=== PATIENT | female | born 1985 | race Caucasian/White ===

== ENCOUNTER 2016-11-01 22:55 | Inpatient (IN) | payer MEDICAID ==
[~2016-11-01] VITALS: Ht 160 cm; Wt 68.3 kg
[~2016-11-01 22:55] MED LIST: HUMI20KI SQ; VIST25CA PO
--- NOTE | 2016-11-01 23:10 | PD ---
Physical Exam Date Seen by Provider: Nov 01, 2016 Time Seen by Provider: 23:09 [facility] Supervised Visit with NAGA: No Narrative Course 31 YO F with PMH of Crohn's presents to the ED for evaluation of abdominal pain , N/V/D x 5 days. ---F/C. Treated with steroids at urgent care today. On Humira. GI: Dr. Butts. Vitals reviewed. Patient seen in triage. Awaiting bed placement. Sita Almazan Nov 01, 2016 23:10
[2016-11-01 23:13] VITALS: BP 149/77; PULSE 96; RESP 16; TEMP 99; O2SAT 98
[2016-11-01] MEDS ORDERED: ONDANSETRON HCL 4 MG/2 ML VIAL IVP ONE (23:30)
[2016-11-01] MEDS ORDERED: KETOROLAC TROMETHAMINE 30 MG/ML (IVP) VIAL IVP ONE (23:30)
[2016-11-01] MEDS ORDERED: DICYCLOMINE HCL 20 MG/2 ML VIAL IM ONE (23:30)
[2016-11-01] MEDS ORDERED: SODIUM CHLORIDE 0.9% FLUSH 10 ML FLUSH IV FLUSH PRN (23:30)
[2016-11-01] MEDS ORDERED: SODIUM CHLOR 0.9% 1000 ML INJ 1,000 ML IV SCH (23:30)
--- NOTE | 2016-11-01 23:41 | PD ---
HPI Chief Complaint: Abdominal Pain Time Seen by Provider: 23:22 Travel History International Travel<30 days: No Contact w/Intl Traveler<30days: No Traveled to known affect area: No History of Present Illness HPI 31-year-old female with history of Crohn's on Humira every other week here with complaint of abdominal pain, diarrhea. Patient began to feel ill approximately 40 hours ago on Thursday morning. Patient began to have minimal abdominal cramping and fairly frequent profuse watery diarrhea. No hematochezia. Associated nausea, anorexia but no vomiting. Patient states that she was seen at urgent care this morning and was given a dose of steroid injection in the buttock and given prescription for prednisone 40 mg daily 5 days. She took the oral prednisone at home. She is not feeling any improvement. She called Dr. Villagomez's office and spoke with on-call physician who recommended she come to the ER. She denies any fevers, chills. She notes minimal cramping in the abdomen followed by urge to defecate which resolves after defecation. Her biggest concern at this time is throughout the day today her abdomen has become more distended and bloated. PFSH Past Medical History Gastrointestinal Disorders: Yes (CROHN'S) ?: Not : 1 Para: 1 Miscarriage: 0 Social History Alcohol Use: No Tobacco Use: No Substance Use: No Allergies-Medications (Allergen,Severity, Reaction): Coded Allergies: Penicillin (Verified Allergy, Severe, Hives, 11/01/16) Reported Meds & Prescriptions Reported Meds & Active Scripts Active Vistaril (Hydroxyzine Pamoate) 25 Mg Cap 25 Mg PO Q6H PRN Reported Humira Inj. (Adalimumab 20 mg/0.4 ml) Adalimumab 20 mg/0.4 ml Inj 40 Mg SQ Q14D Review of Systems Except as stated in HPI: all other systems reviewed are Neg Physical Exam Narrative GENERAL: Well-appearing female in no acute distress SKIN: Focused skin assessment warm/dry. HEAD: Normocephalic. EYES: No scleral icterus. No injection or drainage. ENT: Mucous membranes pink and moist. NECK: Supple CARDIOVASCULAR: Regular rate and rhythm. No murmur appreciated. RESPIRATORY: No accessory muscle use. Clear to auscultation. Breath sounds equal bilaterally. GASTROINTESTINAL: Abdomen soft, nontender to palpation but distended. No fluid wave. No CVA tenderness MUSCULOSKELETAL: No obvious deformities. No edema. NEUROLOGICAL: Awake and alert. Motor grossly within normal limits. Normal speech. PSYCHIATRIC: Appropriate mood and affect; insight and judgment normal. Data Data Last Documented VS Vital Signs Date Time Temp Pulse Resp B/P Pulse Ox O2 Delivery O2 Flow Rate FiO2 11/01/16 23:13 99.0 96 16 149/77 98 Room Air Orders Complete Blood Count With Diff (11/01/16 23:23) Comprehensive Metabolic Panel (11/01/16 23:23) Lipase (11/01/16 23:23) Urinalysis - C+S If Indicated (11/01/16 23:23) Iv Access Insert/Monitor (11/01/16 23:23) Ecg Monitoring (11/01/16 23:23) Oximetry (11/01/16 23:23) Sodium Chloride 0.9% Flush (Ns Flush) (11/01/16 23:30) Ed Urine Pregnancytest Poc (11/01/16 23:23) Ondansetron Inj (Zofran Inj) (11/01/16 23:30) Sodium Chlor 0.9% 1000 Ml Inj (Ns 1000 M (11/01/16 23:30) Ketorolac Inj (Toradol Inj) (11/01/16 23:30) Dicyclomine Inj (Bentyl Inj) (11/01/16 23:30) Labs Laboratory Tests Test 11/01/16 11/01/16 23:45 23:55 White Blood Count 4.3 TH/MM3 Red Blood Count 4.40 MIL/MM3 Hemoglobin 13.8 GM/DL Hematocrit 40.3 % Mean Corpuscular Volume 91.5 FL Mean Corpuscular Hemoglobin 31.4 PG Mean Corpuscular Hemoglobin 34.3 % Concent Red Cell Distribution Width 12.7 % Platelet Count 305 TH/MM3 Mean Platelet Volume 7.9 FL Neutrophils (%) (Auto) 70.9 % Lymphocytes (%) (Auto) 26.6 % Monocytes (%) (Auto) 2.4 % Eosinophils (%) (Auto) 0.0 % Basophils (%) (Auto) 0.1 % Neutrophils # (Auto) 3.1 TH/MM3 Lymphocytes # (Auto) 1.1 TH/MM3 Monocytes # (Auto) 0.1 TH/MM3 Eosinophils # (Auto) 0.0 TH/MM3 Basophils # (Auto) 0.0 TH/MM3 CBC Comment DIFF FINAL Differential Comment Sodium Level 139 MEQ/L Potassium Level 3.6 MEQ/L Chloride Level 107 MEQ/L Carbon Dioxide Level 22.2 MEQ/L Anion Gap 10 MEQ/L Blood Urea Nitrogen 8 MG/DL Creatinine 0.68 MG/DL Estimat Glomerular Filtration 102 ML/MIN Rate Random Glucose 140 MG/DL Calcium Level 8.8 MG/DL Total Bilirubin 0.3 MG/DL Aspartate Amino Transf 23 U/L (AST/SGOT) Alanine Aminotransferase 22 U/L (ALT/SGPT) Alkaline Phosphatase 52 U/L Total Protein 8.2 GM/DL Albumin 3.5 GM/DL Lipase 154 U/L Urine Color YELLOW Urine Turbidity HAZY Urine pH 6.0 Urine Specific [place] 1.034 Urine Protein 100 mg/dL Urine Glucose (UA) NEG mg/dL Urine Ketones TRACE mg/dL Urine Occult Blood MOD Urine Nitrite NEG Urine Bilirubin NEG Urine Urobilinogen LESS THAN 2.0 MG/DL Urine Leukocyte Esterase NEG Urine RBC 18 /hpf Urine WBC 7 /hpf Urine Squamous Epithelial 5 /hpf Cells Urine Bacteria RARE /hpf Urine Mucus MANY /lpf Microscopic Urinalysis Comment CULT NOT INDICATED MDM Medical Decision Making Medical Screen Exam Complete: Yes Emergency Medical Condition: Yes Medical Record Reviewed: Yes Differential Diagnosis 31-year-old female with history of Crohn's disease here with complaint of 40 hours of profuse diarrhea, anorexia and nausea. Differential includes Crohn's flare, dehydration, electrolyte abnormality, irritable bowel. Her abdominal examination is benign and given lack of fevers or chills by suspicion for complications of Crohn such as fistula, abscess is low. Narrative Course Patient placed on monitor, IV established and blood obtained. Given 1 L normal saline bolus, 4 mg Zofran, 30 mg Toradol, 20 mg Bentyl. CBC, CMP, lipase, urinalysis and urine test notable only for questionable urinary tract infection. This is a dirty specimen but does contain some red cells and white cells with bacteria. Patient had no improvement with the above and was given second liter normal saline bolus, 4 mg morphine. Patient still nauseous, and having pain with any oral intake. Will admit for symptom control. Diagnosis Primary Impression: Crohn's colitis Qualified Code: K50.10 - Crohn's colitis, without complications Admitting Information Admitting Physician Requests: Lindsay Quispe MD Nov 01, 2016 23:41
[2016-11-02 00:01] LABS: AUTOMATED NEUTROPHIL # 3.1 TH/MM3 (1.8-7.7); BASOPHIL % 0.1 % (0.0-2.0); HEMATOCRIT 40.3 % (35.0-46.0); HEMO FLAGS DIFF FINAL; LYMPH % 26.6 % (9.0-44.0); LYMPHOCYTE # 1.1 TH/MM3 (1.0-4.8); MEAN CELL VOLUME 91.5 FL (80.0-100.0); MEAN CORPUSCULAR HEMOGLOBIN 31.4 PG (27.0-34.0); MEAN CORPUSCULAR HGB CONC 34.3 % (32.0-36.0); MONO % 2.4 % (0.0-8.0); NEUT % 70.9 % (16.0-70.0); PLATELET COUNT 305 TH/MM3 (150-450); RED CELL DISTRIBUTION WIDTH 12.7 % (11.6-17.2); WHITE BLOOD COUNT 4.3 TH/MM3 (4.0-11.0)
[2016-11-02 00:25] LABS: ANION GAP 10 MEQ/L (5-15); AST (GOT) 23 U/L (15-37); BICARBONATE 22.2 MEQ/L (21.0-32.0); BLOOD UREA NITROGEN 8 MG/DL (7-18); CHLORIDE 107 MEQ/L (98-107); GLOMERULAR FILTRATION RATE 102 ML/MIN (>89); SODIUM (NA) 139 MEQ/L (136-145)
[2016-11-02 00:26] LABS: ALKALINE PHOSPHATASE 52 U/L (45-117); ALT (GPT) 22 U/L (10-53); TOTAL BILIRUBIN ADULT 0.3 MG/DL (0.2-1.0)
[2016-11-02 00:41] LABS: POTASSIUM 3.6 MEQ/L (3.5-5.1)
[2016-11-02 00:49] LABS: BACTERIA, URINE RARE /hpf; BLOOD, URINE MOD (NEG); GLUCOSE,URINE NEG (NEG); KETONE, URINE TRACE mg/dL (NEG); MUCUS URINE MANY /lpf (OCC); NITRITE,URINE NEG (NEG); SQUAMOUS EPITHELIAL CELL URINE 5 /hpf (0-5); URINE COLOR YELLOW (YELLW/STRAW)
[2016-11-02 00:50] LABS: COMMENT (UR) CULT NOT INDICATED; CULTURE IF INDICATED CULT NOT INDICATED
[2016-11-02] MEDS ORDERED: SODIUM CHLOR 0.9% 1000 ML INJ 1,000 ML IV SCH (01:35)
[2016-11-02] MEDS ORDERED: MORPHINE SULFATE 4 MG/ML INJ IV PUSH ONE (01:45)
[2016-11-02] MEDS ORDERED: ONDANSETRON HCL 4 MG/2 ML VIAL IVP PRN (02:00)
[2016-11-02] MEDS ORDERED: BISACODYL 10 MG SUPP RECTAL PRN (02:00)
[2016-11-02] MEDS ORDERED: LACTULOSE SYRUP 20 GM/30 ML CUP PO PRN (02:00)
[2016-11-02] MEDS ORDERED: ATROPINE/SCOPOLAM/HYOSCYAM/PB ELIXIR 10 ML CUP PO PRN (02:00)
[2016-11-02] MEDS ORDERED: PANTOPRAZOLE SODIUM 40 MG VIAL IV PUSH ONE (02:00)
[2016-11-02] MEDS ORDERED: LIDOCAINE VISCOUS 2% SOLN 15 ML UDC SWISH-SWAL PRN (02:00)
[2016-11-02] MEDS ORDERED: MORPHINE SULFATE 4 MG/ML INJ IV PRN (02:00)
[2016-11-02] MEDS ORDERED: MAGNESIUM HYDROXIDE SUSP 30 ML CUP PO PRN (02:00)
[2016-11-02] MEDS ORDERED: ALUMINUM/MAGNESIUM/SIMETH 30 ML CUP PO PRN (02:00)
[2016-11-02] MEDS ORDERED: ACETAMINOPHEN/HYDROcodone 325 MG/5 MG TAB PO PRN (02:00)
[2016-11-02] MEDS ORDERED: ACETAMINOPHEN 325 MG TAB PO PRN (02:00)
[2016-11-02] MEDS ORDERED: SENNOSIDES 8.6 MG TAB PO PRN (02:00)
[2016-11-02] MEDS ORDERED: SODIUM CHLORIDE 0.9% FLUSH 10 ML FLUSH IV FLUSH PRN (02:00)
--- NOTE | 2016-11-02 03:42 | HHI.HP ---
[facility] No Primary Care Physician Admission Diagnosis Crohn's colitis Diagnoses: (1) Crohn's disease Diagnosis: Principal (2) Intractable nausea and vomiting Diagnosis: Principal (3) Abdominal distention Diagnosis: Principal Travel History International Travel<30 Days: No Contact w/Intl Traveler <30 Da: No Traveled to Known Affected Are: No History of Present Illness This is a 31-year-old female with a PMH of Crohn's Disease on Humira who presented to the ER w/ complaints of nausea, diarrhea and progressive abdominal distention x2 days. Seen at Urgent Care Clinic earlier and given Steroid IM and Rx for Prednisone 40mg qd x5 days, however no improvement. Follows w/ GI, Dr. Butts, called office today and was instructed to come to the ER. Denies fever, chills, abdominal pain or sick contacts. On arrival, BP 149/77, HR 96, O2 sat 98% on RA, Temp 99.0. CBC unremarkable. CMP essentially unremarkable. UA negative for UTI. S/p Bentyl, Toradol, Morphine and Zofran in ER w/ minimal improvement. Review of Systems Except as stated in HPI: all other systems reviewed are Neg ROS: 14 point review of systems otherwise negative. Past Family Social History Past Medical History PMH: Crohn's Disease on Humira Past Surgical History PAST SURGICAL HISTORY: None Allergies: Coded Allergies: Penicillin (Verified Allergy, Severe, Hives, 11/01/16) Family History PAST FAMILY HISTORY: Reviewed. No h/o DM or CAD Social History PAST SOCIAL HISTORY: Negative for alcohol, tobacco or drugs. Physical Exam Vital Signs Vital Signs Date Time Temp Pulse Resp B/P Pulse Ox O2 Delivery O2 Flow Rate FiO2 11/01/16 23:13 99.0 96 16 149/77 98 Room Air Physical Exam PE: GENERAL: Pleasant young female in no acute distress. HEENT: PERRLA, EOMI. No scleral icterus or conjunctival pallor. No lid lag or facial droop. CARDIOVASCULAR: Regular rate and rhythm. No obvious murmurs to auscultation. No chest tenderness to palpation. RESPIRATORY: No obvious rhonchi or wheezing. Clear to auscultation. Breath sounds equal bilaterally. GASTROINTESTINAL: Abdomen distended but soft, no tenderness to palpation, significant gas. MUSCULOSKELETAL: Extremities without clubbing, cyanosis, or edema. No obvious deformities. NEUROLOGICAL: Awake, alert and oriented x4. No focal neurologic deficits. Moving both upper and lower extremities spontaneously. Laboratory Laboratory Tests Test 11/01/16 11/01/16 23:45 23:55 White Blood Count 4.3 Red Blood Count 4.40 Hemoglobin 13.8 Hematocrit 40.3 Mean Corpuscular Volume 91.5 Mean Corpuscular Hemoglobin 31.4 Mean Corpuscular Hemoglobin 34.3 Concent Red Cell Distribution Width 12.7 Platelet Count 305 Mean Platelet Volume 7.9 Neutrophils (%) (Auto) 70.9 Lymphocytes (%) (Auto) 26.6 Monocytes (%) (Auto) 2.4 Eosinophils (%) (Auto) 0.0 Basophils (%) (Auto) 0.1 Neutrophils # (Auto) 3.1 Lymphocytes # (Auto) 1.1 Monocytes # (Auto) 0.1 Eosinophils # (Auto) 0.0 Basophils # (Auto) 0.0 CBC Comment DIFF FINAL Differential Comment Sodium Level 139 Potassium Level 3.6 Chloride Level 107 Carbon Dioxide Level 22.2 Anion Gap 10 Blood Urea Nitrogen 8 Creatinine 0.68 Estimat Glomerular Filtration 102 Rate Random Glucose 140 Calcium Level 8.8 Total Bilirubin 0.3 Aspartate Amino Transf 23 (AST/SGOT) Alanine Aminotransferase 22 (ALT/SGPT) Alkaline Phosphatase 52 Total Protein 8.2 Albumin 3.5 Lipase 154 Urine Color YELLOW Urine Turbidity HAZY Urine pH 6.0 Urine Specific [place] 1.034 Urine Protein 100 Urine Glucose (UA) NEG Urine Ketones TRACE Urine Occult Blood MOD Urine Nitrite NEG Urine Bilirubin NEG Urine Urobilinogen LESS THAN 2.0 Urine Leukocyte Esterase NEG Urine RBC 18 Urine WBC 7 Urine Squamous Epithelial 5 Cells Urine Bacteria RARE Urine Mucus MANY Microscopic Urinalysis Comment CULT NOT INDICATED Result Diagram: 11/01/16234411/01/162344 Assessment and Plan Problem List: (1) Crohn's disease ICD Code: K50.90 Status: Acute (2) Intractable nausea and vomiting ICD Code: R11.2 Status: Acute (3) Abdominal distention ICD Code: R14.0 Status: Acute Assessment and Plan A/P: 1. Crohn's Disease: Chronic. On Humira, following w/ Dr. Butts as outpatient, recently started on Prednisone PO, will start Solu-Medrol IV, abdomen soft, no c/o abdominal pain at this time. 2. Intractable N/V: Persistent. Unable to take adequate PO due to symptoms. Supportive therapy, IVF, diet as tolerated, analgesics/antiemetics as needed. 3. Abdominal Distention: abdomen soft, non-tender, +significant gas on exam, Protonix IV, GI Cocktail, supportive treatment. 4. DVT Prophylaxis: SCD/Teds. 5. Social work for d/c planning as needed. 6. Case discussed w/ ER physician at length. Gudelia Morgan MD Nov 02, 2016 03:42
[2016-11-02] MEDS ORDERED: NUVAMIS VAGINAL (03:45)
[2016-11-02] MEDS ORDERED: HUMI40KI SQ (03:45)
[2016-11-02] MEDS ORDERED: PRED20 PO (03:47)
[2016-11-02] MEDS: SODIUM CHLOR 0.9% 1000 ML INJ 1,000 ML IV SCH ×3 (03:48→21:32)
[2016-11-02 07:48] VITALS: BP 118/69; PULSE 64; RESP 16; TEMP 98.3; O2SAT 96
[2016-11-02] MEDS: methylPREDNISolone SOD SUCC 40 MG/1 ML VIAL IV PUSH SCH ×2 (08:58→21:32)
[2016-11-02] MEDS: SODIUM CHLORIDE 0.9% FLUSH 10 ML FLUSH IV FLUSH SCH ×2 (08:59→21:00)
[2016-11-02] MEDS ORDERED: DOCUSATE SODIUM 50 MG/SENNA 8.6 MG TAB PO SCH (09:00)
--- NOTE | 2016-11-02 11:27 | HHI.PR ---
Subjective Remarks Follow-up for Crohn's exacerbation. The patient states that she tried clear liquids this morning, which causes worsening abdominal distention and bloating. She does report that pain medicines in the ED have relieved the sharp stabbing pain she was having in her abdomen. She continues to report diarrhea this morning. She states that normally Crohn's exacerbations or able to be treated with oral prednisone, but oral prednisone she received at urgent care did not help. She states that on recent admission she saw Dr. Persaud, but has not been following with him as outpatient. She states that previously she had been following with Dr. Hoffmann. Objective Vitals Vital Signs Date Time Temp Pulse Resp B/P Pulse Ox O2 Delivery O2 Flow Rate FiO2 11/02/16 07:48 98.3 64 16 118/69 96 11/01/16 23:13 99.0 96 16 149/77 98 Room Air I/O 11/01/16 11/01/16 11/01/16 11/02/16 11/02/16 11/02/16 07:00 15:00 23:00 07:00 15:00 23:00 Intake Total 120 ml Balance 120 ml Intake Oral 120 ml Result Diagram: 11/01/16 2345 11/01/16 2345 Objective Remarks GENERAL: Well-developed well-nourished. In no acute distress. SKIN: Warm and dry. No lesions noted. HEENT: Normocephalic. Pupils equal and round. Mucous membranes pink and moist. CARDIOVASCULAR: Regular rate and rhythm. No murmur appreciated. RESPIRATORY: No accessory muscle use. Clear to auscultation. Breath sounds equal bilaterally. GASTROINTESTINAL: Abdomen soft, non-tender, moderately distended. Bowel sounds x4. MUSCULOSKELETAL: No obvious deformities. No clubbing or cyanosis. No edema. NEUROLOGICAL: Awake and alert. No focal neurological deficits. Moves upper and lower extremities spontaneously. Normal speech. PSYCHIATRIC: Appropriate mood and affect; insight and judgment normal. A/P Problem List: (1) Crohn's disease ICD Code: K50.90 Status: Acute (2) Intractable nausea and vomiting ICD Code: R11.2 Status: Acute (3) Abdominal distention ICD Code: R14.0 Status: Acute Assessment and Plan 31-year-old female with a PMH of Crohn's Disease on Humira who presented w/ complaints of nausea, diarrhea and progressive abdominal distention x2 days Acute exacerbation of Crohn's Disease: Failed outpatient therapy with oral prednisone. Consult gastroenterology, previously following with Dr. Hoffmann. Continue Solu-Medrol IV. Clear liquids for now as tolerated. Supportive care with IVF, IV morphine as needed, antiemetics as needed. DVT Prophylaxis: SCD/Teds. Discharge Planning Discussed with case management, meets inpatient criteria. Vic Tena Nov 02, 2016 11:27
[2016-11-02 12:01] VITALS: BP 124/74; PULSE 68; RESP 16; TEMP 98.1; O2SAT 96
[2016-11-02 15:00] VITALS: BP 119/72; PULSE 70; RESP 16; TEMP 98.5; O2SAT 97
--- NOTE | 2016-11-02 16:58 | PD.CONS ---
HPI History of Present Illness This is a 31 year old female who presents with complaints of abdominal distention this was associated with diarrhea that started on Thursday she reports nausea but no vomiting this time around usually she complains of bouts of constipation with nausea and vomiting and most often she is able to deal with it at home the patient was diagnosed with Crohn's disease back in 2013 she presented with abdominal distention and workup at that time revealed a phlegmon and she underwent surgical intervention and the biopsies seem to confirm inflammation with the possibility of Crohn's the patient tells me she got started on some cemzia thereafter but she failed therapy and then got on Humira and she feels like she's done pretty well on this medicine she has been on it for the past year and a half and has had 3 or 4 small flares and is she would put it At this point in time she is comfortable in bed she does have a significantly distended abdomen apart from some nausea she is feeling otherwise comfortable PFSH Past Medical History PMH: Crohn's Disease on Humira Past Surgical History Seems like she may have had a partial resection or just biopsies from the colon and ileum not clear to me at this point Coded Allergies: Penicillin (Verified Allergy, Severe, Hives, 11/01/16) Medications Humira Family History She has one or 2 members of her family with Crohn's disease Social History PAST SOCIAL HISTORY: Negative for alcohol, tobacco or drugs. Review of Systems ROS Review of systems Patient denies any headache dizziness blurry vision, denies any chest pain shortness of breath cough fever chills, Denies any palpitations or fatigue denies any polyuria dysuria hematuria, denies any numbness tingling or weakness, denies any skin rash pruritus or jaundice, denies any easy bruising or bleeding tendency, denies any recent change in mood GI Exam Vitals I&O Vital Signs Date Time Temp Pulse Resp B/P Pulse Ox O2 Delivery O2 Flow Rate FiO2 11/02/16 15:00 98.5 70 16 119/72 97 11/02/16 14:20 18 11/02/16 12:01 98.1 68 16 124/74 96 11/02/16 07:48 98.3 64 16 118/69 96 11/01/16 23:13 99.0 96 16 149/77 98 Room Air I/O 6/17/17 6/17/17 11/01/16 11/02/16 11/02/16 11/02/16 07:00 15:00 23:00 07:00 15:00 23:00 Intake Total 120 ml Balance 120 ml Intake Oral 120 ml Laboratory Test 11/01/16 11/01/16 23:45 23:55 White Blood Count 4.3 TH/MM3 Red Blood Count 4.40 MIL/MM3 Hemoglobin 13.8 GM/DL Hematocrit 40.3 % Mean Corpuscular Volume 91.5 FL Mean Corpuscular Hemoglobin 31.4 PG Mean Corpuscular Hemoglobin 34.3 % Concent Red Cell Distribution Width 12.7 % Platelet Count 305 TH/MM3 Mean Platelet Volume 7.9 FL Neutrophils (%) (Auto) 70.9 % Lymphocytes (%) (Auto) 26.6 % Monocytes (%) (Auto) 2.4 % Eosinophils (%) (Auto) 0.0 % Basophils (%) (Auto) 0.1 % Neutrophils # (Auto) 3.1 TH/MM3 Lymphocytes # (Auto) 1.1 TH/MM3 Monocytes # (Auto) 0.1 TH/MM3 Eosinophils # (Auto) 0.0 TH/MM3 Basophils # (Auto) 0.0 TH/MM3 CBC Comment DIFF FINAL Differential Comment Sodium Level 139 MEQ/L Potassium Level 3.6 MEQ/L Chloride Level 107 MEQ/L Carbon Dioxide Level 22.2 MEQ/L Anion Gap 10 MEQ/L Blood Urea Nitrogen 8 MG/DL Creatinine 0.68 MG/DL Estimat Glomerular Filtration 102 ML/MIN Rate Random Glucose 140 MG/DL Calcium Level 8.8 MG/DL Total Bilirubin 0.3 MG/DL Aspartate Amino Transf 23 U/L (AST/SGOT) Alanine Aminotransferase 22 U/L (ALT/SGPT) Alkaline Phosphatase 52 U/L Total Protein 8.2 GM/DL Albumin 3.5 GM/DL Lipase 154 U/L Urine Color YELLOW Urine Turbidity HAZY Urine pH 6.0 Urine Specific [place] 1.034 Urine Protein 100 mg/dL Urine Glucose (UA) NEG mg/dL Urine Ketones TRACE mg/dL Urine Occult Blood MOD Urine Nitrite NEG Urine Bilirubin NEG Urine Urobilinogen LESS THAN 2.0 MG/DL Urine Leukocyte Esterase NEG Urine RBC 18 /hpf Urine WBC 7 /hpf Urine Squamous Epithelial 5 /hpf Cells Urine Bacteria RARE /hpf Urine Mucus MANY /lpf Microscopic Urinalysis Comment CULT NOT INDICATED Physical Examination HEENT: Pupils round and reactive to light; normocephalic; atraumatic; no jaundice. Throat is clear. NECK: Neck is supple, no JVD, no lymphadenopathy. CHEST: Chest is clear to auscultation and percussion. CARDIAC: Regular rate and rhythm with no murmur gallop or rubs. ABDOMEN: Soft, distended mildly tympanic but not tense, nontender; no hepatosplenomegaly; bowel sounds are present in all four quadrants. EXTREMITIES: No clubbing, cyanosis, or edema. SKIN: Normal; no rash; no jaundice. FIRE INFORMATION OFFICER: No focal deficits; alert and oriented times three. Assessment and Plan Plan Abdominal distention etiology unclear History of Crohn's At this point we will need abdominal imaging and I think the best approach would be to have a CT of the abdomen with contrast She may even need on top of that if nondiagnostic a small bowel follow-through Would also contemplate pursuing a colonoscopy if all the above is unremarkable I also ordered a sedimentation rate and CRP It is not clear to me at this point that the patient has Crohn's but I would certainly continue with current supportive care and measures Further recommendations shall depend on her hospital course Shola Ramirez MD Nov 02, 2016 16:58
[2016-11-02] MEDS ORDERED: DIATRIZOATE MEGLUM/DIATRIZOATE SOD 9 ML CUP PO ONE (18:00)
[2016-11-02] MEDS ORDERED: IOHEXOL 350 MG/ML 10 ML VIAL (for RAD DIAG) IV ONE (19:15)
--- NOTE | 2016-11-02 19:29 | RADRPT ---
EXAM DATE/TIME: 11/02/2016 19:09 [facility] COMPARISON: CT ABDOMEN & PELVIS W CONTRAST, July 09, 2013, 10:02. INDICATIONS : Abdominal distention with periumbilical pain X 3 days. IV CONTRAST: 71 cc Omnipaque 350 (iohexol) IV ORAL CONTRAST: Prescribed oral contrast ingested. RADIATION DOSE: 9.96 CTDIvol (mGy) MEDICAL HISTORY : Crohn's disease. SURGICAL HISTORY : None. ENCOUNTER: Initial ACUITY: 3 days PAIN SCALE: 7/10 LOCATION: abdomen TECHNIQUE: Volumetric scanning of the abdomen and pelvis was performed. Using automated exposure control and ad justment of the mA and/or kV according to patient size, radiation dose was kept as low as reasonably achievable to obtain optimal diagnostic quality images. FINDINGS: LOWER LUNGS: The visualized lower lungs are clear. LIVER: Homogeneous density without lesion. There is no dilation of the biliary tree. Gallbladder is distend ed but otherwise unremarkable by CT. SPLEEN: Normal size without lesion. PANCREAS: Within normal limits. KIDNEYS: Normal in size and shape. There is no mass, stone or hydronephrosis. ADRENAL GLANDS: Within normal limits. VASCULAR: There is no aortic aneurysm. BOWEL/MESENTERY: Scattered colonic diverticula without evidence for diverticulitis. No gross colonic wall thickening. Small bowel appears grossly unremarkable without evidence for obstruction or gross wall thickening. ABDOMINAL WALL: Within normal limits. RETROPERITONEUM: There is no lymphadenopathy. BLADDER: No wall thickening or mass. REPRODUCTIVE: Endometrial fluid likely related to patient's phase of menstrual cycle. Otherwise, unremarkable. INGUINAL: There is no lymphadenopathy or hernia. MUSCULOSKELETAL: Within normal limits for patient age. CONCLUSION: 1. No gross bowel wall thickening, inflammatory change, or evidence for obstruction in this patient w ith history of Crohn's disease. 2. No drainable fluid collections. 3. No definitive CT findings to explain patient's symptoms at this time. Jonn Mar MD on November 02, 2016 at 19:19 Board Certified Radiologist. This report was verified electronically.
[2016-11-02 19:39] VITALS: BP 121/64; PULSE 58; RESP 20; TEMP 98.6; O2SAT 98
[2016-11-02] MEDS: PANTOPRAZOLE SODIUM 40 MG VIAL IV PUSH SCH (21:32)
[2016-11-02 22:47] VITALS: BP 152/80; PULSE 60; RESP 17; TEMP 97.1; O2SAT 98
[2016-11-03 04:00] VITALS: BP 161/95; PULSE 60; RESP 17; TEMP 97.5; O2SAT 98
[2016-11-03 06:20] LABS: AUTOMATED NEUTROPHIL # 5.4 TH/MM3 (1.8-7.7); BASOPHIL % 0.2 % (0.0-2.0); HEMATOCRIT 37.9 % (35.0-46.0); HEMO FLAGS DIFF FINAL; LYMPH % 25.8 % (9.0-44.0); MEAN CELL VOLUME 92.1 FL (80.0-100.0); MEAN CORPUSCULAR HEMOGLOBIN 30.3 PG (27.0-34.0); MEAN CORPUSCULAR HGB CONC 32.9 % (32.0-36.0); PLATELET COUNT 260 TH/MM3 (150-450); RED BLOOD COUNT 4.11 MIL/MM3 (4.00-5.30); RED CELL DISTRIBUTION WIDTH 12.5 % (11.6-17.2); WHITE BLOOD COUNT 7.8 TH/MM3 (4.0-11.0)
[2016-11-03 06:50] LABS: ALKALINE PHOSPHATASE 46 U/L (45-117); ALT (GPT) 16 U/L (10-53); ANION GAP 8 MEQ/L (5-15); AST (GOT) 11 U/L (15-37); BICARBONATE 24.8 MEQ/L (21.0-32.0); BLOOD UREA NITROGEN 6 MG/DL (7-18); CHLORIDE 108 MEQ/L (98-107); GLOMERULAR FILTRATION RATE 122 ML/MIN (>89); POTASSIUM 3.5 MEQ/L (3.5-5.1); SODIUM (NA) 141 MEQ/L (136-145); TOTAL BILIRUBIN ADULT 0.3 MG/DL (0.2-1.0)
[2016-11-03 07:38] VITALS: BP 146/93; PULSE 54; RESP 16; TEMP 97.8; O2SAT 97
[2016-11-03] MEDS: SODIUM CHLOR 0.9% 1000 ML INJ 1,000 ML IV SCH ×2 (08:21→13:18)
[2016-11-03] MEDS: SODIUM CHLORIDE 0.9% FLUSH 10 ML FLUSH IV FLUSH SCH ×2 (08:23→21:45)
[2016-11-03] MEDS: methylPREDNISolone SOD SUCC 40 MG/1 ML VIAL IV PUSH SCH ×2 (10:04→21:44)
[2016-11-03] MEDS: PANTOPRAZOLE SODIUM 40 MG VIAL IV PUSH SCH ×2 (10:04→21:44)
--- NOTE | 2016-11-03 10:04 | HHI.PR ---
Subjective Remarks Follow-up for abdominal pain Patient stated that she feels a lot better after given Protonix and steroids. She stated when she eats she gets bloated. Patient had Jello today. Otherwise no other complaints. Positive for diarrhea. Objective Vitals Vital Signs Date Time Temp Pulse Resp B/P Pulse Ox O2 Delivery O2 Flow Rate FiO2 11/03/16 07:38 97.8 54 16 146/93 97 11/03/16 04:00 97.5 60 17 161/95 98 11/02/16 23:02 Room Air 11/02/16 22:47 97.1 60 17 152/80 98 11/02/16 19:39 98.6 58 20 121/64 98 11/02/16 15:00 98.5 70 16 119/72 97 11/02/16 14:20 18 11/02/16 12:01 98.1 68 16 124/74 96 I/O 11/02/16 11/02/16 11/02/16 11/03/16 11/03/16 11/03/16 07:00 15:00 23:00 07:00 15:00 23:00 Intake Total 120 ml 240 ml 874 ml Balance 120 ml 240 ml 874 ml Intake Oral 120 ml 240 ml 240 ml IV Total 634 ml # Voids 1 2 # Bowel Movements 0 Result Diagram: 11/03/1636 11/03/16535 Objective Remarks GENERAL: in NAD. CARDIOVASCULAR: Regular rate and rhythm without murmurs, gallops, or rubs. RESPIRATORY: Breath sounds equal bilaterally. No accessory muscle use. GASTROINTESTINAL: Abdomen soft, non-tender. + bloated. No peritoneal signs. MUSCULOSKELETAL: No cyanosis, or edema. BACK: Nontender without obvious deformity. No CVA tenderness. Medications and IVs Current Medications Sodium Chloride (NS Flush) 2 ml UNSCH PRN IV FLUSH FLUSH AFTER USING IV ACCESS ; Start 11/01/16 at 23:30; Stop 11/02/16 at 02:09; Status DC Ondansetron HCl 4 mg 4 mg ONCE ONCE IVP Last administered on 11/01/16t 23:57; Start 11/01/16 at 23:30; Stop 11/01/16 at 23:31; Status DC Sodium Chloride (NS 1000 ml Inj) 1,000 ml @ 1,000 mls/hr Q1H IV Last administered on 11/02/16 00:00; Start 11/01/16 at 23:30; Stop 11/02/16 at 00:29 ; Status DC Ketorolac Tromethamine (Toradol Inj) 30 mg ONCE ONCE IVP Last administered on 11/01/16 23:57; Start 11/01/16 at 23:30; Stop 11/01/16 at 23:31; Status DC Dicyclomine HCl (Bentyl Inj) 20 mg ONCE ONCE IM Last administered on 23:55; Start 11/01/16 at 23:30; Stop 11/01/16 at 23:31; Status DC Morphine Sulfate 4 mg 4 mg ONCE ONCE IV PUSH Last administered on 11/02/16 01 :45; Start 11/02/16 at 01:45; Stop 11/02/16 at 01:46; Status DC Sodium Chloride (NS 1000 ml Inj) 1,000 ml @ 1,000 mls/hr Q1H IV Last administered on 11/02/16 01:43; Start 11/02/16 at 01:35; Stop 11/02/16 at 02:34 ; Status DC Pantoprazole Sodium (Protonix Inj) 40 mg ONCE ONCE IV PUSH Last administered on 11/02/16 02:27; Start 11/02/16 at 02:00; Stop 11/02/16 at 02:15; Status DC Pantoprazole Sodium (Protonix Inj) 40 mg Q12H IV PUSH Last administered on 11/02 21:32; Start 11/02/16 at 21:00 Atropine/Hyoscyam/ Phenobarb/Scopol ( Liq) 10 ml Q6H PRN PO GI DISTRESS ; Start 11/02/16 at 02:00 Al Hydrox/Mg Hydrox/Simethicone (Mag-Al Plus Susp Liq) 30 ml Q6H PRN PO GI DISTRESS; Start 11/02/16 at 02:00 Lidocaine HCl 15 ml 15 ml Q6H PRN SWISH-SWAL GI DISTRESS; Start 11/02/16 at 02: 00 Sodium Chloride (NS 1000 ml Inj) 1,000 ml @ 100 mls/hr Q10H IV Last administered on 11/03/16 08:21; Start 11/02/16 at 01:49 Sodium Chloride (NS Flush) 2 ml UNSCH PRN IV FLUSH FLUSH AFTER USING IV ACCESS ; Start 11/02/16 at 02:00 Sodium Chloride (NS Flush) 2 ml BID IV FLUSH Last administered on 11/02/16 08: 59; Start 11/02/16 at 09:00 Ondansetron HCl (Zofran Inj) 4 mg Q6H PRN IVP NAUSEA OR VOMITING; Start at 02:00 Acetaminophen (Tylenol) 650 mg Q6H PRN PO FEVER/PAIN SCALE 1 TO 2; Start at 02:00 Acetaminophen/ Hydrocodone Bitart (Boyd 5-325 Mg) 1 tab Q4H PRN PO PAIN SCALE 3 TO 5; Start 11/02/16 at 02:00 Morphine Sulfate (Morphine Inj) 2 mg Q3H PRN IV Pain 6-10 Last administered on 11/02/16 14:15; Start 11/02/16 at 02:00 Senna/Docusate Sodium (Niki-Colace) 1 tab BID PO ; Start 11/02/16 at 09:00; Stop 11/02/16 at 11:27; Status DC Magnesium Hydroxide (Milk Of Magnesia Liq) 30 ml Q12H PRN PO MILD - MODERATE CONSTIPATION; Start 11/02/16 at 02:00 Sennosides (Senokot) 17.2 mg Q12H PRN PO MODERATE - SEVERE CONSTIPATION; Start 11/02/16 at 02:00 Bisacodyl (Dulcolax Supp) 10 mg DAILY PRN RECTAL SEVERE CONSITIPATION; Start at 02:00 Lactulose (Lactulose Liq) 30 ml DAILY PRN PO SEVERE CONSITIPATION; Start at 02:00 Methylprednisolone Sodium Succinate (SoluMEDROL INJ) 40 mg Q12HR IV PUSH Last administered on 11/02/16 21:32; Start 11/02/16 at 09:00 Diatrizoate Meglum/ Diatrizoate Sod ( Gastroview Liq) 18 ml ONCE ONCE PO Last administered on 11/02/16 17:45; Start 11/02/16 at 18:00; Stop 11/02/16 at 18:01; Status DC Iohexol (Omnipaque 350 Inj) 71 ml STK-MED ONCE IV ; Start 11/02/16 at 19:15; Stop 11/02/16 at 19:16; Status DC A/P Problem List: (1) Crohn's disease ICD Code: K50.90 Status: Acute (2) Intractable nausea and vomiting ICD Code: R11.2 Status: Acute (3) Abdominal distention ICD Code: R14.0 Status: Acute Assessment and Plan 31-year-old female with a PMH of Crohn's Disease on Humira who presented w/ complaints of nausea, diarrhea and progressive abdominal distention x2 days Abdominal pain/nausea/diarrhea -Per GI unsure if this is truly Crohn's disease. -CT scan negative. -Symptoms improve her protonic since Solu-Medrol. -Patient may need a colonoscopy. Pending recommendations from GI. -Continue her current regimen. DVT Prophylaxis: SCD/Teds. Discharge Planning Patient continues to be symptomatic and requires continued hospitalization. She may need a colonoscopy. Dottie Hook MD Nov 03, 2016 10:04
[2016-11-03 11:15] VITALS: BP 130/83; PULSE 56; RESP 16; TEMP 97.2; O2SAT 97
--- NOTE | 2016-11-03 12:06 | HHI.GIFU ---
Subjective Remarks Resting in bed. States she woke up fine without any nausea, abdominal pain or distention, but shortly after taking clear liquids, she became bloated. Had a bowel movement yesterday. (Shayla Moriera) Objective Vitals I&O Vital Signs Date Time Temp Pulse Resp B/P Pulse Ox O2 Delivery O2 Flow Rate FiO2 11/03/16 11:15 97.2 56 16 130/83 97 11/03/16 07:38 97.8 54 16 146/93 97 11/03/16 04:00 97.5 60 17 161/95 98 11/02/16 23:02 Room Air 11/02/16 22:47 97.1 60 17 152/80 98 11/02/16 19:39 98.6 58 20 121/64 98 11/02/16 15:00 98.5 70 16 119/72 97 11/02/16 14:20 18 11/02/16 12:01 98.1 68 16 124/74 96 I/O 11/02/16 11/02/16 11/02/16 11/03/16 11/03/16 11/03/16 07:00 15:00 23:00 07:00 15:00 23:00 Intake Total 120 ml 240 ml 874 ml Balance 120 ml 240 ml 874 ml Intake Oral 120 ml 240 ml 240 ml IV Total 634 ml # Voids 1 2 # Bowel Movements 0 Laboratory Laboratory Tests Test 11/02/16 11/03/16 19:43 05:36 Erythrocyte Sedimentation Rate 12 C-Reactive Protein 1.10 White Blood Count 7.8 Red Blood Count 4.11 Hemoglobin 12.5 Hematocrit 37.9 Mean Corpuscular Volume 92.1 Mean Corpuscular Hemoglobin 30.3 Mean Corpuscular Hemoglobin 32.9 Concent Red Cell Distribution Width 12.5 Platelet Count 260 Mean Platelet Volume 7.9 Neutrophils (%) (Auto) 69.0 Lymphocytes (%) (Auto) 25.8 Monocytes (%) (Auto) 5.0 Eosinophils (%) (Auto) 0.0 Basophils (%) (Auto) 0.2 Neutrophils # (Auto) 5.4 Lymphocytes # (Auto) 2.0 Monocytes # (Auto) 0.4 Eosinophils # (Auto) 0.0 Basophils # (Auto) 0.0 CBC Comment DIFF FINAL Differential Comment Sodium Level 141 Potassium Level 3.5 Chloride Level 108 Carbon Dioxide Level 24.8 Anion Gap 8 Blood Urea Nitrogen 6 Creatinine 0.58 Estimat Glomerular Filtration 122 Rate Random Glucose 109 Calcium Level 8.4 Total Bilirubin 0.3 Aspartate Amino Transf 11 (AST/SGOT) Alanine Aminotransferase 16 (ALT/SGPT) Alkaline Phosphatase 46 Total Protein 6.3 Albumin 2.8 Imaging Last Impressions Abdomen/Pelvis CT 11/02/16 0000 Signed Impressions: Service Date/Time: Wednesday, November 02, 2016 19:09 - CONCLUSION: 1. No gross bowel wall thickening, inflammatory change, or evidence for obstruction in this patient with history of Crohn's disease. 2. No drainable fluid collections. 3. No definitive CT findings to explain patient's symptoms at this time. Jonn Mar MD Physical Exam HEENT: Normocephalic; atraumatic; no jaundice. CHEST: CTA CARDIAC: RRR ABDOMEN: Soft, mildly distended, nontender; no hepatosplenomegaly; bowel sounds are present in all four quadrants. EXTREMITIES: No clubbing, cyanosis, or edema. SKIN: Normal; no rash; no jaundice. 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 (Shayla Moreira [facility]) Assessment and Plan Plan ASSESSMENT: - Abdominal distention, unclear etiology. Abdomen/Pelvis CT (11/02/16)-----> 1. No gross bowel wall thickening, inflammatory change, or evidence for obstruction in this patient with history of Crohn's disease. 2. No drainable fluid collections. 3. No definitive CT findings to explain patient's symptoms at this time. She reports that this seems to have improved with steroids, but she did have more distention after clear liquids. PPI. Steroids. ? EGD/Colonoscopy. - Hx Crohn's. Reports she was diagnosed in 2013 at which time she had a partial bowel obstruction and pathology was consistent with possible Crohn's. She was on Cemzia and more recently on Humira q2 weeks (last dose 10/26). She is followed by Dr. Burdick in [facility] and reports that her last colonoscopy was in April of 2016 and she was told that she had a polyp, but he did not see any evidence of Crohn's. CRP 1.10. ESR 12. ? SBFT vs. EGD/Colonoscopy. Cont. Solumedrol for now. PLAN: - Clear liquids - Cont. Solumedrol - Cont. PPI - Monitor labs - ? SBFT vs. EGD/Colonoscopy - Further recommendations to follow after seen and examined by Dr. Rea ( Shayla Moreira) Plan Pt examined and interviewed. CT scan reviewed. We will proceed with EGD and colonoscopy tomorrow with miralax prep. (Dmitriy Rea MD) Shayla Moreira Nov 03, 2016 12:06 Dmitriy Rea MD Nov 03, 2016 16:33
[2016-11-03 15:55] VITALS: BP 138/90; PULSE 58; RESP 16; TEMP 97.9; O2SAT 95
[2016-11-03] MEDS ORDERED: MAGNESIUM CITRATE SOLN 300 ML BTL PO ONE (16:45)
[2016-11-03] MEDS ORDERED: BISACODYL EC 5 MG TABEC PO ONE (20:00)
[2016-11-03 20:11] VITALS: BP 151/87; PULSE 59; RESP 17; TEMP 96.8; O2SAT 98
[2016-11-04] VITALS: BP 121/70; PULSE 56; RESP 16; TEMP 97.7; O2SAT 97
[2016-11-04] MEDS ORDERED: LACTATED RINGER'S 1000 ML IV PRN (02:00)
[2016-11-04] MEDS ORDERED: INSULIN HUMAN REGULAR 1,000 UNITS/10 ML VIAL SQ PRN (02:00)
[2016-11-04] MEDS ORDERED: METOPROLOL TARTRATE 25 MG TAB PO PRN (02:00)
[2016-11-04] MEDS ORDERED: POVIDONE IODINE 5% (ANTISEPSIS KIT) 4 APPLICATIONS EACH NARE PRN (02:00)
[2016-11-04] MEDS ORDERED: SODIUM CHLORID 0.9% 500 ML IV PRN (02:00)
[2016-11-04] MEDS ORDERED: CHLORHEXIDINE GLUCONATE 2 % 1 PACK (2 CLOTHS) TOPICAL PRN (02:00)
[2016-11-04] MEDS: SODIUM CHLOR 0.9% 1000 ML INJ 1,000 ML IV SCH (03:49)
[2016-11-04 04:19] VITALS: BP 124/76; PULSE 57; RESP 16; TEMP 98.5; O2SAT 97
[2016-11-04] MEDS: PANTOPRAZOLE SODIUM 40 MG VIAL IV PUSH SCH (07:46)
[2016-11-04] MEDS: methylPREDNISolone SOD SUCC 40 MG/1 ML VIAL IV PUSH SCH (07:47)
[2016-11-04 08:00] VITALS: BP 131/73; PULSE 60; RESP 16; TEMP 98.1; O2SAT 97
[2016-11-04 09:30] VITALS: BP 131/73; PULSE 60; RESP 16; TEMP 98.1; O2SAT 97
[2016-11-04] MEDS ORDERED: PROPOFOL 200 MG/20 ML AMP IV ONE (10:37)
--- NOTE | 2016-11-04 10:48 | HHI.GIFU ---
Subjective Remarks Immediate postop note: EGD with biopsy and Colonoscopy with biopsy Indication: Nausea and vomiting, crohns disease Meds: MAC Findings: Esophagus: normal Stomach: mild gastritis, biopsy taken Duodenum: normal Terminal ileum: apparent mild inflammation with stiffness biopsy taken Cecum: mild inflammation biopsy taken Colon: normal Rectum: hemorrhoids Objective Vitals I&O Vital Signs Date Time Temp Pulse Resp B/P Pulse Ox O2 Delivery O2 Flow Rate FiO2 11/04/16 09:30 98.1 60 16 131/73 97 11/04/16 08:00 98.1 60 16 131/73 97 11/04/16 04:19 98.5 57 16 124/76 97 11/04/16 00:00 97.7 56 16 121/70 97 11/03/16 20:11 96.8 59 17 151/87 98 11/03/16 18:55 Room Air 11/03/16 15:55 97.9 58 16 138/90 95 11/03/16 11:15 97.2 56 16 130/83 97 I/O 11/03/16 11/03/16 11/03/16 11/04/16 11/04/16 11/04/16 07:00 15:00 23:00 07:00 15:00 23:00 Intake Total 874 ml 1049 ml 480 ml 0 ml Balance 874 ml 1049 ml 480 ml 0 ml Intake Oral 240 ml 480 ml 480 ml 0 ml IV Total 634 ml 569 ml # Voids 2 5 2 2 # Bowel Movements 0 0 Physical Exam HEENT: Normocephalic; atraumatic; no jaundice. CHEST: CTA CARDIAC: RRR ABDOMEN: Soft, mildly distended, nontender; no hepatosplenomegaly; bowel sounds are present in all four quadrants. EXTREMITIES: No clubbing, cyanosis, or edema. SKIN: Normal; no rash; no jaundice. 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 Assessment and Plan Plan Imp: - Gastritis - Crohns disease, ileum - No ulcerations or erosions. Current admitting symptoms could be due to IBS - She is ready for discharge Plan: - home today - continue Humira for crohns disease - treat IBS with metamucil 1 tablespoon daily - followup in GI office in 2-3 weeks Dmitriy Rea MD Nov 04, 2016 10:48
[2016-11-04] MEDS ORDERED: PRED20 PO (11:56)
[2016-11-04] MEDS ORDERED: META28.34 PO (11:56)
--- NOTE | 2016-11-04 11:57 | HHI.DS ---
Discharge Summary Admission Date Nov 02, 2016 at 12:19 Discharge Date: Nov 04, 2016 Admitting Diagnosis Crohn's colitis (1) Intractable nausea and vomiting ICD Code: R11.2 Diagnosis: Principal (2) Abdominal distention ICD Code: R14.0 Diagnosis: Principal Procedures EGD and colonoscopy Brief History - From Admission This is a 31-year-old female with a PMH of Crohn's Disease on Humira who presented to the ER w/ complaints of nausea, diarrhea and progressive abdominal distention x2 days. Seen at [facility]gent [facility] earlier and given Steroid IM and Rx for Prednisone 40mg qd x5 days, however no improvement. Follows w/ GI, Dr. Butts, called office today and was instructed to come to the ER. Denies fever, chills, abdominal pain or sick contacts. On arrival, BP 149/77, HR 96, O2 sat 98% on RA, Temp 99.0. CBC unremarkable. CMP essentially unremarkable. UA negative for UTI. S/p Bentyl, Toradol, Morphine and Zofran in ER w/ minimal improvement. CBC/BMP: 11/03/16 0536 11/03/16 0536 Significant Findings Laboratory Tests Test 11/01/16 11/01/16 11/02/16 11/03/16 23:45 23:55 19:43 05:36 Neutrophils (%) (Auto) 70.9 % (16.0-70.0) Random Glucose 140 MG/DL 109 MG/DL (74-106) (74-106) Urine Turbidity HAZY (CLEAR) Urine Protein 100 mg/dL (NEG-TRACE) Urine Ketones TRACE mg/dL (NEG) Urine Occult Blood MOD (NEG) Urine RBC 18 /hpf (0-3) Urine WBC 7 /hpf (0-5) Urine Bacteria RARE /hpf (NONE) Urine Mucus MANY /lpf (OCC) C-Reactive Protein 1.10 MG/DL (0.00-0.30) Chloride Level 108 MEQ/L (98-107) Blood Urea Nitrogen 6 MG/DL (7-18) Calcium Level 8.4 MG/DL (8.5-10.1) Aspartate Amino Transf 11 U/L (15-37) (AST/SGOT) Total Protein 6.3 GM/DL (6.4-8.2) Albumin 2.8 GM/DL (3.4-5.0) Imaging Last Impressions Abdomen/Pelvis CT 11/02/16 0000 Signed Impressions: Service Date/Time: Wednesday, November 02, 2016 19:09 - CONCLUSION: 1. No gross bowel wall thickening, inflammatory change, or evidence for obstruction in this patient with history of Crohn's disease. 2. No drainable fluid collections. 3. No definitive CT findings to explain patient's symptoms at this time. Jonn Mar MD PE at Discharge GENERAL: in NAD. CARDIOVASCULAR: Regular rate and rhythm without murmurs, gallops, or rubs. RESPIRATORY: Breath sounds equal bilaterally. No accessory muscle use. GASTROINTESTINAL: Abdomen soft, non-tender. + bloated. No peritoneal signs. MUSCULOSKELETAL: No cyanosis, or edema. BACK: Nontender without obvious deformity. No CVA tenderness. Pt update on day of discharge Follow-up for abdominal distention and nausea vomiting. Patient stated that symptoms have resolved. She is very anxious to go home today. She has no complaints. Denied any pain. Hospital Course 31-year-old female with a PMH of Crohn's Disease on Humira who presented w/ complaints of nausea, diarrhea and progressive abdominal distention x2 days Abdominal pain/nausea/diarrhea -Per GI unsure if this is truly Crohn's disease. -CT scan negative. -Symptoms improve her protonic and Solu-Medrol. -Patient had a EGD and colonoscopy done on 11/04/2016 which showed gastritis, and Crohn's disease with some mild to minimal findings in the terminal ileum, possible ureteral bowel syndrome based on current admitting symptoms. Biopsies were obtained. Per spa concierge patient to continue Humira and treat irritable bowel syndrome Metamucil 1 tablespoon daily starting the next day. Patient was to follow with GI in 2-3 weeks. At the time of discharge symptoms seemed to resolve. -Patient was also put on a prednisone taper on the day of discharge. Pt Condition on Discharge: Stable Discharge Disposition: Discharge Home Discharge Time: <= 30 minutes Discharge Instructions DIET: Follow Instructions for: As Tolerated, No Restrictions Activities you can perform: Regular-No Restrictions Follow up Referrals: Gastroenterology - 2 Weeks PCP Follow-up - 1 Week New Medications: Prednisone (Prednisone) 20 Mg Tab 20 MG PO DAILY take 1 tablet once a day for 7 days then 0.5 tablet once a day for 7 days then stop steriods. possible crohns flare up #11 Ref 0 TAB Psyllium Powder (Metamucil Smooth Texture) 28.3 % Pow 1 SCOOP PO TID 1 rounded TEASPOON in 8 oz of liquid at the first sign of irregularity. PRN CONSTIPATION #1 Ref 0 CONTAINER Continued Medications: Adalimumab 2-Pack Inj (Humira 2-Pack Inj) 40 Mg/0.8 Ml Syr 40 MG SQ Q14D #1 Ref 0 KIT Etonogestrel-Ethinyl Estradiol Vaginal Insert (Nuvaring Vaginal Insert) 0.120- 0.015 Mg/24 Hr Vagring 1 APPLIC VAGINAL DIRECTED Control #1 Ref 0 PACK Discontinued Medications: Prednisone (Prednisone) 20 Mg Tab 40 MG PO DAILY 40 MG twice a day x 3 days, then 20 MG daily x 3 days, then 10 MG daily x 3 days Inflammation #10 Ref 0 TAB Dottie Hook MD Nov 04, 2016 11:57
--- NOTE | 2016-11-04 11:57 | HHI.DCPOC ---
Discharge Care Plan Diagnosis: (1) Abdominal pain Goals to Promote Your Health * To prevent worsening of your condition and complications * To maintain your health at the optimal level Directions to Meet Your Goals Take your medications as prescribed Follow your dietary instruction Follow activity as directed Keep your appointments as scheduled Take your immunizations and boosters as scheduled If your symptoms worsen call your PCP, if no PCP go to Urgent Care Center or Emergency Room Smoking is Dangerous to Your Health. Avoid second hand smoke Call the 24-hour hour crisis hotline for domestic abuse at Dottie Hook MD Nov 04, 2016 11:57
[2016-11-04 12:00] VITALS: BP 152/95; PULSE 72; RESP 15; TEMP 96.8; O2SAT 99
[2016-11-05] MEDS ORDERED: predniSONE 20 MG TAB PO SCH (09:00)
--- NOTE | 2016-11-05 09:30 | MP ---
cc: DMITRIY REA CAMILLE MD DATE OF SURGERY: 11/04/2016 PROCEDURE 1. Esophagogastroduodenoscopy with biopsy. 2. Colonoscopy with biopsy. INDICATION Nausea and vomiting with a history of Crohn's disease. DETAILS OF PROCEDURE After informed consent was obtained, the patient was placed in the left side down position. She was sedated by the Anesthesia service. After adequate sedation was achieved, the Olympus video gastroscope was inserted in the oropharynx and advanced through the esophagus, stomach and duodenum. It was then slowly withdrawn examining the mucosal surfaces carefully. Two biopsies were obtained from the gastric antrum. A retroflex exam was performed in the fundus and cardia. The scope was then straightened and pulled through the esophagus and the procedure was terminated. A colonoscopy was then performed. Digital rectal examination was normal. The Lumenis video colonoscope was inserted in the anal canal and advanced through the colon reaching the terminal ileum. It could only be intubated for a few centimeters because of looping. The scope was then withdrawn slowly examining the mucosal surfaces carefully. Biopsies were obtained inside the terminal ileum of some mild inflammation there and there was some stiffness. The scope was then withdrawn into the cecum and two biopsies were obtained from the cecal base which showed some possible inflammation. The scope was then withdrawn through the colon, examining it carefully. It was retroflexed in the rectum, was then straightened and pulled through the anal canal and the procedure was terminated. She tolerated both procedures well and was returned to the recovery area in good condition. FINDINGS 1. The esophagus was normal. 2. The stomach showed some mild gastritis and two biopsies were obtained in the antrum. 3. The duodenum was normal. 4. The terminal ileum showed some mild inflammation and stiffness just inside the terminal ileum. Biopsies were obtained. 5. In the cecum there was evidence of some minimal inflammation. Two biopsies were obtained. 6. The colon was otherwise normal. 7. The rectum showed some internal hemorrhoids. IMPRESSION 1. Gastritis. 2. Crohn's disease with some mild to minimal findings in the terminal ileum. 3. No ulcerations or erosions seen. 4. Her current admitting symptoms could be due to irritable bowel syndrome with abdominal bloating. Her symptoms may have resolved due to CT scan with oral contrast giving the laxative effect. 5. She is ready for discharge today. RECOMMENDATIONS 1. Discharge home today. 2. Continue Humira for Crohn's disease. 3. Treat irritable bowel syndrome with Metamucil one tablespoon daily starting tomorrow. 4. Follow-up in GI office in 2-3 weeks. Dmitriy Rea MD [facility]/BT /10:57 AM /9:20 AM
== END 2016-11-04 16:41 | disposition home or self-care (01) | DRG 387 ==
LOC: NEPE 22:55 → NEDA 11-02 02:03 → NEPHCDU 11-02 04:02 → OBSVTOIN 11-02 12:19 → N06A 11-02 22:31
PROVIDERS: ADMIT Family Medicine; ATTEND Family Medicine
PROC: 0DB68ZX Excision of Stomach, Via Natural or Artificial Opening Endoscopic, Diagnostic (ICD-10-PCS; 2016-11-04)
PROC: 0DBH8ZX Excision of Cecum, Via Natural or Artificial Opening Endoscopic, Diagnostic (ICD-10-PCS; principal; 2016-11-04 09:59)
PROC: 0DBB8ZX Excision of Ileum, Via Natural or Artificial Opening Endoscopic, Diagnostic (ICD-10-PCS; 2016-11-04 09:59)
DX: K50.10 Crohn's disease of large intestine without complications (principal); K64.8 Other hemorrhoids; K29.70 Gastritis, unspecified, without bleeding; K58.9 Irritable bowel syndrome, unspecified
CPT/HCPCS: 74177; 80053; 81001; 83690; 84703; 85025; 85652; 86140; 88305; 88312; 96374; 96375; C9113; J0500; J1885; J2270; J2405; J2920; J7030; Q9963; Q9967